=== PATIENT | male | born 1995 | race American Indian/Alaskan Native ===

== ENCOUNTER 2019-05-02 21:38 | Emergency (ER) | payer SELFPAY ==
[2019-05-03] MEDS ORDERED: FLUORESCEIN 1 MG STRIP OP ONE (00:49)
[2019-05-03] MEDS ORDERED: TETRACAINE 0.5% OPHTH SOLN 4ML OU ONE (00:51)
--- NOTE | 2019-05-03 00:52 | Emergency Department Report ---
Eye Injury/Foreign Body - HPI Duration: 5 Days Eye Location: Left Severity: Moderate Tetanus Status: Unknown Eye Symptoms: Eye Pain: Yes, Blurred Vision: Yes, Eye Redness: No, Grinding/Hammering Metal: No, Contact Lens Use: No, Photophobia: Yes Other History: This is a 23-year-old male that presents to the ER with left eye pain, swelling, and redness for 5 days. Patient states he wear glasses but denies wearing contacts. States he woke up with pain and photophobia 5 days ago that is worsening. Reports a sensation of something in his eye. He tried cleaning eye out with water with no improvement of symptoms. ED Review of Systems ROS: Stated complaint: LEFT EYE PAIN/BLURRED VISION Other details as noted in HPI Constitutional: denies: chills, fever Eyes: eye pain (left), vision change (left). denies: eye discharge Respiratory: denies: cough, shortness of breath, wheezing Cardiovascular: denies: chest pain, palpitations Gastrointestinal: denies: abdominal pain, nausea, diarrhea Skin: denies: rash, lesions Neurological: denies: headache, weakness, paresthesias Psychiatric: denies: anxiety, depression ED Past Medical Hx - Past Medical History Previous Medical History?: No Hx Hypertension: No Hx CVA: No Hx Heart Attack/AMI: No Hx Congestive Heart Failure: No Hx Diabetes: No Hx Deep Vein Thrombosis: No Hx Pulmonary Embolism: No Hx GERD: No Hx Liver Disease: No Hx Renal Disease: No Hx of Cancer: No Hx Sickle Cell Disease: No Hx Arthritis: No Hx Headaches / Migraines: No Hx Seizures: No Hx Kidney Stones: No Hx Psychiatric Treatment: No Hx Asthma: No Hx COPD: No Hx Tuberculosis: No Hx Dementia: No Hx HIV: No - Surgical History Past Surgical History?: Yes Hx Coronary Stent: No Hx Open Heart Surgery: No Hx Pacemaker: No Hx Internal Defibrillator: No Hx Cholecystectomy: No Hx Appendectomy: Yes Hx Breast Surgery: No Additional Surgical History: tonsils - Social History Smoking Status: Current Every Day Smoker Substance Use Type: Alcohol, Marijuana - Medications Home Medications: Home Medications Medication Instructions Recorded Confirmed Last Taken Type Erythromycin [Erythromycin Ophth 10 applic OP QID 3 Days #1 tube 05/03/19 Unknown Rx Oint] Eye Injury Exam - Exam General: Vital signs noted. No distress. Alert and acting appropriately. - Visual Acuity Left Vision Acuity Degree: 20/70 Eye Exam: Left Injection, Left Chemosis, Left Fluorescein Uptake (clue cells visualized with linear abrasion right pupil), Both EOMI, Neither Abnormal Pupil, Neither Eye Foreign Body, Neither Lid Foreign Body, Neither Mucous Discharge, Neither Purulent Discharge, Neither Fluorescein Uptake (slit lamp), Neither Cell/Flare (slit lamp), Neither Corneal Edema, Neither Photophobia Right Vision Acuity Degree: 20/25 ED Course Vital Signs 05/02/19 05/02/19 21:57 22:52 Temperature 98.6 F 98.6 F Pulse Rate 89 89 Respiratory 18 18 Rate Blood Pressure 154/86 154/86 O2 Sat by Pulse 96 96 Oximetry ED Medical Decision Making - Medical Decision Making Patient was examined by me. Patient is nontoxic appearing and stable. Vitals are normal. The left eye examined by wood lamp after fluroscein stain. There is clue cells and signs of corneal abrasion. There are no signs of foreign body or entrapment. Start erythromycin ointment. Referral to Ophthalmology with follow up in 24 hours. Follow up with PCP or return to the ER with worsening symptoms. Patient discharged home in stable condition. Denies recent injury or drainage. Critical care attestation.: If time is entered above; I have spent that time in minutes in the direct care of this critically ill patient, excluding procedure time. ED Disposition Clinical Impression: Acute left eye pain Corneal abrasion, left Qualifiers: Encounter type: initial encounter Qualified Code(s): S05.02XA - Injury of conjunctiva and corneal abrasion without foreign body, left eye, initial encounter Disposition: - TO HOME OR SELFCARE Is pt being admited?: No Does the pt Need Aspirin: No Condition: Stable Instructions: Corneal Abrasion (ED) Additional Instructions: Follow up with ophthalmology in 24 hours. Prescriptions: Erythromycin [Erythromycin Ophth Oint] 10 applic OP QID 3 Days #1 tube Referrals: ANA JIMENEZ MD [Staff Physician] - 3-[address] [facility] [Provider Group] - 3-5 Days [facility] [Provider Group] - 3-5 Days Forms: Work/School Release Form(ED) Time of Disposition: 01:59
[2019-05-03 02:25] VITALS: BP 144/85
== END 2019-05-03 02:26 | disposition home or self-care (01) ==
LOC: ED 21:38
DX: S05.02XA Injury of conjunctiva and corneal abrasion without foreign body, left eye, initial encounter (principal); F17.200 Nicotine dependence, unspecified, uncomplicated; F12.10 Cannabis abuse, uncomplicated; Z90.49 Acquired absence of other specified parts of digestive tract; Z90.89 Acquired absence of other organs; X58.XXXA Exposure to other specified factors, initial encounter; Y93.89 Activity, other specified; Y92.89 Other specified places as the place of occurrence of the external cause; Y99.8 Other external cause status

== ENCOUNTER 2019-05-18 17:40 | Emergency (ER) | payer OTHER ==
[2019-05-18 18:34] VITALS: BP 122/88
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
== END 2019-05-18 19:28 | disposition home or self-care (01) ==
LOC: ED 17:40
DX: S16.1XXA Strain of muscle, fascia and tendon at neck level, initial encounter (principal); F17.200 Nicotine dependence, unspecified, uncomplicated; F12.10 Cannabis abuse, uncomplicated; Z79.899 Other long term (current) drug therapy; Z88.5 Allergy status to narcotic agent; Z88.0 Allergy status to penicillin; Z91.010 Allergy to peanuts; Z90.49 Acquired absence of other specified parts of digestive tract; V89.2XXA Person injured in unspecified motor-vehicle accident, traffic, initial encounter; Y93.89 Activity, other specified; Y92.488 Other paved roadways as the place of occurrence of the external cause; Y99.8 Other external cause status
CPT/HCPCS: 99282

== ENCOUNTER 2019-07-16 01:33 | Emergency (ER) | payer SELFPAY ==
[2019-07-16 01:42] VITALS: BP 126/74
== END 2019-07-16 04:14 | disposition left against medical advice (07) ==
LOC: ED 01:33
DX: Z04.1 Encounter for examination and observation following transport accident (principal); Z53.21 Procedure and treatment not carried out due to patient leaving prior to being seen by health care provider

== ENCOUNTER 2019-07-16 05:16 | Emergency (ER) | payer SELFPAY | END 2019-07-16 06:30 | disposition left against medical advice (07) | LOC: ED 05:16 | DX: Z04.1 Encounter for examination and observation following transport accident (principal); Z53.21 Procedure and treatment not carried out due to patient leaving prior to being seen by health care provider ==